=== PATIENT | female | born 1940 | race Caucasian/White ===

== ENCOUNTER → 2016-09-01 | Day surgery (SDC) | payer MEDICARE, OTHER ==
[2016-09-01 11:41] LABS: HCT 41.3 % (37.0-47.0); MCH 28.9 pg (25.0-31.0); MCHC 33.9 g/dL (32.0-36.0); MCV 85.3 fL (78.0-100.0); MPV 9.8 fL (6.0-9.5); RBC 4.84 M/uL (4.20-5.40); WBC 7.2 K/uL (4.0-10.5)
[2016-09-01 12:14] LABS: ALBUMIN 4.8 g/dL (3.4-4.8); BILIRUBIN - TOTAL 0.6 mg/dL (0.1-1.0); CREATININE 0.9 mg/dL (0.5-1.0); GLOBULIN (CALCULATION) 3.2 g/dL (2.2-4.2); POTASSIUM 3.4 mmol/L (3.5-5.1)
== END | disposition home or self-care (01) ==
LOC: FAS 10:10
PROVIDERS: Surgery
DX: Z12.11 Encounter for screening for malignant neoplasm of colon (principal); D12.6 Benign neoplasm of colon, unspecified; K64.8 Other hemorrhoids; J30.9 Allergic rhinitis, unspecified; M19.90 Unspecified osteoarthritis, unspecified site; G47.30 Sleep apnea, unspecified; Z90.89 Acquired absence of other organs
CPT/HCPCS: 36415; 80053; 88305; J1100; J2704